=== PATIENT | female | born 1955 ===

== ENCOUNTER 2017-05-16 11:49 | Emergency (ER) | payer BC ==
--- NOTE | 2017-05-16 12:30 | C.PDOC ---
History Of Present Illness 61F c/o pain in her shoulders, chest, and abdomen she describes as a "tightness " for the last 6 days. she says it is better when she is relaxing at home and worse when she is at work where it is hot and she is stressed. she took advil 3 days ago but did not help. Time Seen by Provider: 05/16/17 12:23 Chief Complaint (Nursing): Chest Pain Past Medical History Vital Signs: Last Vital Signs Temp 98.2 F 05/16/17 12:09 Pulse 68 05/16/17 14:10 Resp 20 05/16/17 14:10 BP 125/54 L 05/16/17 14:10 Pulse Ox 100 05/16/17 15:42 - Medical History PMH: HTN Surgical History: Cholecystectomy Family History: States: Other Other Family History: nc - Social History Hx Tobacco Use: No Hx Alcohol Use: No Hx Substance Use: No - Immunization History Hx Tetanus Toxoid Vaccination: No Hx Influenza Vaccination: No Hx Pneumococcal Vaccination: No Review Of Systems Except As Marked, All Systems Reviewed And Found Negative. Constitutional: Negative for: Fever Cardiovascular: Positive for: Chest Pain Respiratory: Negative for: Cough, Shortness of Breath Gastrointestinal: Positive for: Abdominal Pain. Negative for: Nausea, Vomiting , Diarrhea Genitourinary: Negative for: Dysuria Musculoskeletal: Positive for: Shoulder Pain, Back Pain (upper) Neurological: Negative for: Weakness, Numbness, Headache Physical Exam - Physical Exam Appears: Well, Non-toxic, No Acute Distress Skin: Warm, Dry Head: Atraumatic Eye(s): bilateral: PERRL Nose: No Epistaxis Oral Mucosa: Moist Neck: Normal ROM Cardiovascular: Rhythm Regular Respiratory: No Decreased Breath Sounds, No Accessory Muscle Use, No Rales, No Rhonchi, No Stridor, No Wheezing Gastrointestinal/Abdominal: Bowel Sounds, Soft, No Tenderness, No Distention, No Guarding, No Rebound Extremity: No Swelling Pulses: Left Radial: Normal, Right Radial: Normal, Left Dorsalis Pedis: Normal, Right Dorsalis Pedis: Normal Neurological/Psych: Oriented x3, Normal Cranial Nerves, Normal Motor, Normal Sensation, Other (no focal deficits) ED Course And Treatment - Laboratory Results Result Diagrams: 05/16/17 13:04 05/16/17 13:36 O2 Sat by Pulse Oximetry: 100 Medical Decision Making Medical Decision Making: ecg- nsr 61, nl axis, nl int, non-spec t wave abnormality which appears similar to ecg in 2013 330pm the pt reports feeling better. her BP is also improved. I disc w her pmd Dr Mcdonald who agrees w plan for dc home and will f/u in office. disc results and plan w pt and family who v/u and agree w plan. Disposition - Disposition Referrals: Will Mcdonald MD [Staff Provider] - Disposition: HOME/ ROUTINE Disposition Time: 15:37 Condition: IMPROVED Additional Instructions: Please follow up with your doctor. Return to the ER for any worsening symptoms or for any other concerns. Forms: General Discharge Instructions, [facility] (Arabic), Work Excuse - Clinical Impression Clinical Impression: High blood pressure, Muscle pain
[2017-05-16 13:07] LABS: BASO % 0.4 % (0.0-2.0); EOS # 0.1 K/uL (0.0-0.7); EOS % 1.5 % (0.0-4.0); HEMATOCRIT 40.7 % (34.0-47.0); LYMPH % 24.6 % (20.0-40.0); MEAN CELL VOLUME 95.1 fL (81.0-99.0); MEAN CORPUSCULAR HEMOGLOBIN 32.4 pg (27.0-31.0); MEAN CORPUSCULAR HGB CONC 34.1 g/dL (33.0-37.0); MEAN PLATELET VOLUME 8.7 fL (7.2-11.7); MONO # 0.4 K/uL (0.0-0.8); MONO % 4.3 % (0.0-10.0); RED CELL DISTRIBUTION WIDTH 12.2 % (11.5-14.5)
[2017-05-16 13:12] LABS: WHITE BLOOD COUNT 8.3 K/uL (4.8-10.8)
[2017-05-16 13:25] LABS: RBC URINE < 1 /hpf (0-3); URINE BACTERIA RARE (<OCC); URINE BILIRUBIN NEGATIVE (NEGATIVE); URINE BLOOD 2+ (NEGATIVE); URINE COLOR Straw (YELLOW); URINE GLUCOSE (UA) NORMAL (Normal); URINE KETONE NEGATIVE (NEGATIVE); URINE LEUKOCYTE ESTERASE TRACE Leu/uL (Negative); URINE PROTEIN NEGATIVE (NEGATIVE); URINE UROBILINOGEN NORMAL mg/dL (0.2-1.0); WBC URINE 4 /hpf (0-5)
--- NOTE | 2017-05-16 13:32 | RAD ---
HISTORY: cp COMPARISON: Chest x-ray performed 05/05/13 TECHNIQUE: Chest, one view. FINDINGS: LUNGS: No focal consolidation. Please note that chest x-ray has limited sensitivity for the detection of pulmonary masses. PLEURA: No significant pleural effusion identified. No definite pneumothorax . CARDIOVASCULAR: Heart size appears within normal limits. OSSEOUS STRUCTURES: Degenerative changes of the spine. VISUALIZED UPPER ABDOMEN: Unremarkable. OTHER FINDINGS: None. IMPRESSION: No focal consolidation, significant pleural effusion, or definite pneumothorax identified.
[2017-05-16 14:09] LABS: CHLORIDE 104 mmol/L (98-107)
[2017-05-16 14:11] VITALS: BP 125/54
[2017-05-16 14:11] LABS: GFR AFRICAN-AMERICAN > 60
[2017-05-16 14:12] LABS: ALKALINE PHOSPHATASE 94 U/L (38-126); ALT/SGPT 47 U/L (9-52); AST/SGOT 40 U/L (14-36); BILIRUBIN,TOTAL 1.1 mg/dL (0.2-1.3); BLOOD UREA NITROGEN 12 mg/dL (7-17); CALCIUM 9.1 mg/dl (8.6-10.4); CARBON DIOXIDE 21 mmol/L (22-30); GLUCOSE,RANDOM 95 mg/dL (65-105)
[2017-05-16 14:19] LABS: SODIUM 140 mmol/L (132-148)
[2017-05-16 14:20] LABS: ALB/GLOB RATIO 1.1 (1.0-2.1); TOTAL PROTEIN 8.3 g/dL (6.3-8.3)
[2017-05-16 16:27] VITALS: PULSE 72; RESP 18; TEMP 98.4
[2017-05-16 16:29] VITALS: O2SAT 100
--- NOTE | 2017-05-17 14:24 | CARD ---
APPROVED REPORT EKG Measurement Heart [id number] <Conclusion> Sinus rhythm with marked sinus arrhythmia Otherwise normal ECG
== END 2017-05-16 16:28 | disposition home or self-care (01) ==
LOC: C.ER 11:49
DX: I10 Essential (primary) hypertension (principal); M79.1 Myalgia
CPT/HCPCS: 71010; 80053; 81001; 82550; 83690; 84484; 85025; 93005; 96374; 99285; J1885